=== PATIENT | female | born 1955 | race Caucasian/White ===

== ENCOUNTER → 2020-11-12 10:34 | Outpatient (BNVA) | payer MEDICARE, SELFPAY | PROVIDERS: PCP Pediatrics; Referring Provider Pediatrics; Visit Provider Specialist | DX: R25.1 Tremor, unspecified (principal); R20.0 Anesthesia of skin; R20.2 Paresthesia of skin; F17.200 Nicotine dependence, unspecified, uncomplicated | CPT/HCPCS: 99204 ==